=== PATIENT | male | born 1955 | race Caucasian/White ===

== ENCOUNTER → 2016-08-05 | Outpatient (CLI) | payer OTHER ==
[2014-12-22 23:48] VITALS: BP 139/83
--- NOTE | 2016-08-06 09:38 | KCIC ---
PROCEDURE MR of the left foot HISTORY Left midfoot pain laterally. No known injury. COMPARISON None TECHNIQUE Standard noncontrast images are obtained. FINDINGS No evidence of acute fracture or aggressive bone destruction. There is mild thickening and heterogeneity of the intraosseous band of Lisfranc ligament complex, without evidence of acute rupture or laxity. The plantar and dorsal bands appear intact. There is no evidence tarsometatarsal malalignment. Minimal subchondral marrow edema at the 1st and 2nd tarsometatarsal joints appear reactive or degenerative. No evidence of tendon disruption or significant tendon sheath fluid. No abnormal soft tissue fluid collection or localized edema. No acute sesamoiditis. IMPRESSION 1. Findings compatible with sprain or scarring of the intraosseous band of Lisfranc ligament complex without acute rupture. Mild degenerative or reactive subchondral changes at the tarsometatarsal joints but no evidence of subluxation. 2. No acute findings are seen. Electronically signed by: Von Patterson MD (Aug 06, 2016 09:37:38)
--- NOTE | 2016-08-06 10:25 | KCIC ---
PROCEDURE Orbits. HISTORY [employer]. Previous metal to eyes. TECHNIQUE Orbits with upward and downward gaze were obtained. COMPARISON None. FINDINGS No radiopaque foreign body is apparent. IMPRESSION Negative for radiopaque foreign body. Electronically signed by: Pj Cason MD (Aug 06, 2016 10:23:50)
== END | disposition home or self-care (01) ==
LOC: KCIC MRI 15:30
PROVIDERS: ATTEND Family Medicine
DX: M79.672 Pain in left foot (principal)
CPT/HCPCS: 70030; 73718

== ENCOUNTER → 2016-09-24 | Outpatient (CLI) | payer OTHER ==
[2014-12-22 23:48] VITALS: BP 139/83
== END | disposition home or self-care (01) ==
LOC: SPEC 12:05
PROVIDERS: ATTEND Family Medicine
DX: Z51.81 Encounter for therapeutic drug level monitoring (principal); L03.116 Cellulitis of left lower limb; Z79.2 Long term (current) use of antibiotics
CPT/HCPCS: 36415; 80202

== ENCOUNTER → 2016-09-27 | Outpatient (CLI) | payer OTHER ==
[2014-12-22 23:48] VITALS: BP 139/83
== END | disposition home or self-care (01) ==
LOC: SPEC 07:10
PROVIDERS: ATTEND Family Medicine
DX: Z79.2 Long term (current) use of antibiotics (principal); L03.116 Cellulitis of left lower limb
CPT/HCPCS: 36415; 80202

== ENCOUNTER → 2016-10-07 | Outpatient (CLI) | payer OTHER ==
[2014-12-22 23:48] VITALS: BP 139/83
[2016-10-07 21:09] LABS: BASO # 0.1 x10^3/uL (0.0-0.2); BASO % 1 % (0-3); EOS % 2 % (0-3); HEMATOCRIT 43.7 % (39.0-53.0); HEMOGLOBIN 15.1 g/dL (13.0-17.5); LYMPH # 2.2 x10^3/uL (1.0-4.8); LYMPH % 28 % (24-48); MEAN CORPUSCULAR HEMOGLOBIN 31 pg (25-35); MEAN CORPUSCULAR HGB CONC 35 g/dL (31-37); MEAN CORPUSCULAR VOLUME 90 fL (79-100); MONO % 7 % (0-9); NEUT % 62 % (31-73); PLATELET COUNT 281 x10^3/uL (140-400); RED BLOOD COUNT 4.84 x10^6/uL (4.30-5.70); RED CELL DISTRIBUTION WIDTH 12.9 % (11.5-14.5); WHITE BLOOD COUNT 7.6 x10^3/uL (4.0-11.0)
[2016-10-07 21:12] LABS: CALCIUM 8.9 mg/dL (8.5-10.1); CREATININE 1.1 mg/dL (0.7-1.3); GFR 67.8; POTASSIUM 4.2 mmol/L (3.5-5.1)
== END ==
LOC: SPEC 21:03
PROVIDERS: ATTEND Family Medicine
DX: L03.116 Cellulitis of left lower limb (principal)
CPT/HCPCS: 36415; 80048; 80202; 85027

== ENCOUNTER → 2016-10-12 | Outpatient (CLI) | payer OTHER ==
[2014-12-22 23:48] VITALS: BP 139/83
[2016-10-12 08:52] LABS: BASO # 0.1 x10^3/uL (0.0-0.2); BASO % 1 % (0-3); EOS % 3 % (0-3); HEMATOCRIT 42.9 % (39.0-53.0); HEMOGLOBIN 14.3 g/dL (13.0-17.5); LYMPH # 1.7 x10^3/uL (1.0-4.8); LYMPH % 29 % (24-48); MEAN CORPUSCULAR HEMOGLOBIN 30 pg (25-35); MEAN CORPUSCULAR HGB CONC 33 g/dL (31-37); MEAN CORPUSCULAR VOLUME 91 fL (79-100); MONO % 11 % (0-9); NEUT % 56 % (31-73); PLATELET COUNT 221 x10^3/uL (140-400); RED BLOOD COUNT 4.73 x10^6/uL (4.30-5.70); WHITE BLOOD COUNT 6.1 x10^3/uL (4.0-11.0)
[2016-10-12 09:18] LABS: ANION GAP 12 (6-14); BLOOD UREA NITROGEN 14 mg/dL (8-26); CALCIUM 8.8 mg/dL (8.5-10.1); CARBON DIOXIDE 24 mmol/L (21-32); CHLORIDE 106 mmol/L (98-107); GFR 75.7; GLUCOSE 102 mg/dL (70-99); POTASSIUM 4.2 mmol/L (3.5-5.1); SODIUM 142 mmol/L (136-145)
== END | disposition home or self-care (01) ==
LOC: SPEC 08:38
PROVIDERS: ATTEND Family Medicine
DX: Z45.2 Encounter for adjustment and management of vascular access device (principal); Z79.2 Long term (current) use of antibiotics
CPT/HCPCS: 36415; 80048; 80202; 85027